=== PATIENT | female | born 1965 | race Caucasian/White ===

== ENCOUNTER 2017-08-23 09:26 | Inpatient (IN) ==
--- NOTE | 2017-08-22 17:11 | Discharge Summary ---
<Lilibeth Uriarte - Last Filed: 08/22/17 17:08> Date of Encounter: 08/22/17 - Discharge Diagnosis (1) HTN (hypertension) Priority: Secondary Status: Chronic Qualifiers: Hypertension type: unspecified Qualified Code(s): I10 - Essential (primary ) hypertension (2) Fibromyalgia Priority: Secondary Status: Chronic (3) Osteoarthritis Priority: Secondary Status: Chronic Qualifiers: Osteoarthritis location: unspecified site Osteoarthritis type: unspecified Qualified Code(s): M19.90 - Unspecified osteoarthritis, unspecified site (4) Morbid obesity with BMI of 50.0-59.9, adult Priority: Secondary Status: Chronic (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 [Rx] OxyCODONE Immed Rel [Roxicodone 5 MG] 5 mg PO Q6HR PRN 7 Days #28 tablet [Rx] Cyclobenzaprine [Flexeril] 10 mg PO TID PRN 08/23/17 [History] Montelukast [Singulair] 10 mg PO HS 08/23/17 [History] Allergies/Adverse Reactions: 3 Allergy/AdvReac Type Severity Reaction Status Date / Time naproxen [From Naprosyn] AdvReac Nausea Verified 08/23/17 10:04 Primary care physician: Susana Amanda CNP - Patient Status Disposition: Home, Self-Care Condition: Good - Discharge Instructions Follow Up With: Lilibeth Uriarte PAC [Physician Side Stitcher] - 08/31/17 2:15 pm (& also, , September 07, 2017 at 2:15 PM) Robi Munroe MD [Partnered Physician] - 09/20/17 4:30 pm Susana Amanda CNP [Primary Care Provider] - - Hospital Course Hospital course: Ms. 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 Qualifiers: Encounter type: subsequent encounter Qualified Code(s): T84.012D - Broken internal right knee prosthesis, subsequent encounter (2) HTN (hypertension) Priority: Secondary Status: Chronic Qualifiers: Hypertension type: unspecified Qualified Code(s): I10 - Essential (primary ) hypertension (3) Fibromyalgia Priority: Secondary Status: Chronic (4) Morbid obesity with BMI of 50.0-59.9, adult Priority: Secondary Status: Chronic (5) Status post revision of total replacement of right knee Priority: Primary Status: Acute Primary care physician: Susana Amanda CNP - Patient Status Functional capacity at discharge: uses cane/walker Overall status at discharge: patient is progressing back to baseline - Hospital Course Hospital course: Ms. Evangelista is a 52 year old female Status post revision right total knee. Patient had a fall in the hospital slight shift in the periprosthetic fracture that was noted Intra-Op.The patient had an uneventful postoperative course. They received antibiotics and physical therapy and were discharged in stable condition. There will follow-up in the office in 2 weeks. - Time Spent with Patient Total time spent providing and/or coordinating discharge services:
--- NOTE | 2017-08-22 17:15 | Physician Discharge Referral ---
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 For more information, call the [place] Tobacco Quit Line at 2-638-JZKW-NOW. - Dressing/Wound Care Site: right knee Type of Dressing/Treatments w/Frequency: Opsite placed. Keep dressing intact until first follow up appointment. If > 50% saturated, notify office, remove dressing and place appropriate dressing back in place. Leave Zipline intact. Opsite dressing is water resistant, not water- proof. OK to shower, but do not get dressing wet. - Diet/Nutrition Diet/Nutrition Orders: Regular - Activity Activity Orders: Up ad jamil, Ambulate, Chair, Walker Activity: List: Total Knee replacement Precautions x 6 weeks Apply cold therapy wrap 3-6x/day for 20 minutes at a time. Encourage ambulation throughout the day and incentive spirometer 10x/hour. Elevate affected extremity above heart as tolerated. Brace: Wear knee immobilizer at night x 2 weeks. - Services Needed Following services are medically necessary services: Nursing, Home Health Aide, Physical Therapy, Occupational Therapy, Med Social Work - Transfer Medications Prescriptions: OxyCODONE Immed Rel [Roxicodone 5 MG] 5 mg PO Q6HR PRN 7 Days #28 tablet PRN Reason: Pain Aspirin Enteric Coated [Aspirin EC] 325 mg PO DAILY 21 Days #21 tablet.dr Harrison Medications: DiphenhydraMINE [Benadryl] 50 mg PO HS PRN 06/29/15 [History] Gabapentin [Neurontin] 300 mg PO HS 06/29/15 [History] Gabapentin [Neurontin] 600 mg PO QAM 06/29/15 [History] Meloxicam [Mobic] 7.5 mg PO DAILY 06/29/15 [History] Triamterene/HCTZ 37.5/25mg [Dyazide] 1 each PO DAILY 06/29/15 [History] Venlafaxine XR (24 HR) [Effexor Xr] 150 mg PO DAILY 06/29/15 [History] Oxycodone HCl/Acetaminophen [Percocet 7.5-325 mg Tablet] 1 each PO Q6H PRN #40 tablet 07/01/15 [Rx] Levofloxacin [Levaquin] 500 mg PO DAILY #10 tablet 07/03/15 [Rx] Aspirin Enteric Coated [Aspirin EC] 325 mg PO DAILY 21 Days #21 tablet. [Rx] OxyCODONE Immed Rel [Roxicodone 5 MG] 5 mg PO Q6HR PRN 7 Days #28 tablet [Rx] Allergies/Adverse Reactions: 3 Allergy/AdvReac Type Severity Reaction Status Date / Time acetaminophen [From Vicodin] Allergy Hives Verified 08/16/17 08:52 hydrocodone [From Vicodin] Allergy Hives Verified 08/16/17 08:52 naproxen [From Naprosyn] Allergy Nausea Verified 08/16/17 08:52 Certification: Further, I certify that my clinical findings support that this patient is homebound (i.e. absences from home require considerable and taxing effort and are for medical reasons or gnosticist services or infrequently or short duration when for other reasons) because: Homebound Reason: Post-surgery restriction and or conditions limit ability to leave home Attestation: My signature below is to certify that this patient is under my care and that I, or nurse practitioner, or a physician digital assistant working with me, has a face-to- face encounter with this patient.
[2017-08-23] MEDS ORDERED: Lidocaine -MPF 1% 2 ML VIAL ID ONE (09:44)
[2017-08-23] MEDS ORDERED: CeFAZolin Syr 3,000MG/30 ML 3,000 MG/30 ML SYRINGE IVPB ONE (09:44)
[2017-08-23] MEDS ORDERED: Ringers Solution, Lactated 1,000 ML IVC SCH ×2 (09:45→14:33)
[2017-08-23] MEDS ORDERED: Famotidine 20 MG/2 ML VIAL IVP ONE (09:49)
[2017-08-23] MEDS ORDERED: Gabapentin 300 MG CAPSULE PO ONE (09:49)
[2017-08-23] MEDS ORDERED: *HR* Midazolam HCl 2 MG/2 ML VIAL ONE ×2 (09:54→10:47)
[2017-08-23] MEDS ORDERED: *HR* Propofol 200 MG/20 ML VIAL IVP ONE (09:54)
[2017-08-23] MEDS ORDERED: *HR* FentaNYL (PF) 100 MCG/2 ML VIAL ONE (09:54)
--- NOTE | 2017-08-23 09:54 | Anesthesia Evaluation PreOp ---
Date of Encounter: 08/23/17 Time of Encounter: 09:50 - Past History Planned Operation: Rt TKA Revision Cardiac History: Denies any Significant Hx Pulmonary History: Denies Any Significant HX SURVEY PROJECT MANAGER History: Other (Fibromyalgia) Other Medical History: Other (Morbid Obesity) Anesthesia History: No Prior Anesthetic Complications : No Alcohol Use: none Drug use: none Medications and Allergies DiphenhydraMINE [Benadryl] 50 mg PO HS PRN 06/29/15 [History] Gabapentin [Neurontin] 300 mg PO HS 06/29/15 [History] Gabapentin [Neurontin] 600 mg PO QAM 06/29/15 [History] Meloxicam [Mobic] 7.5 mg PO DAILY 06/29/15 [History] Triamterene/HCTZ 37.5/25mg [Dyazide] 1 each PO DAILY 06/29/15 [History] Venlafaxine XR (24 HR) [Effexor Xr] 150 mg PO DAILY 06/29/15 [History] Oxycodone HCl/Acetaminophen [Percocet 7.5-325 mg Tablet] 1 each PO Q6H PRN #40 tablet 07/01/15 [Rx] Levofloxacin [Levaquin] 500 mg PO DAILY #10 tablet 07/03/15 [Rx] Aspirin Enteric Coated [Aspirin EC] 325 mg PO DAILY 21 Days #21 tablet. [Rx] OxyCODONE Immed Rel [Roxicodone 5 MG] 5 mg PO Q6HR PRN 7 Days #28 tablet [Rx] 3 Allergy/AdvReac Type Severity Reaction Status Date / Time acetaminophen [From Vicodin] Allergy Hives Verified 08/16/17 08:52 hydrocodone [From Vicodin] Allergy Hives Verified 08/16/17 08:52 naproxen [From Naprosyn] Allergy Nausea Verified 08/16/17 08:52 - Meds/Allergy Pre-op Review Medications Reviewed: Yes Allergies Reviewed: Yes Beta Blockers on Current Med List: No Anesthesia Results - Labs Laboratory Tests 07/03/15 07/03/15 17:50 17:50 Hgb 11.0 L Hct 32.9 L Plt Count 279 Sodium 142 Potassium 3.0 L BUN 6 L Creatinine 0.77 HGB 12.9 Plt 227 - Imaging EKG: report reviewed (SR) Additional studies: Cleared for surgery by her outside maintenance worker Anesthesia Exam O2 Sat Height 1.68 m Height 1.68 m Weight 146.057 kg Weight 146.057 kg O2 Sat by Pulse Oximetry 95 Vital Signs Temp Pulse Resp BP Pulse Ox 98.0 F 83 18 130/74 95 08/23/17 09:50 08/23/17 09:50 08/23/17 09:50 08/23/17 09:50 08/23/17 09:50 Height: 5'6 Weight: 322 lbs NPO (# of Hours): MN Pain Scale: 0 - HEENT Pupil (Motor): Pupils equal, EOMI Mallampati: II Teeth: Normal Oral Opening: Greater than 3 - SURVEY PROJECT MANAGER LOC: Oriented SURVEY PROJECT MANAGER Motor: Normal RUE, Normal LUE, Normal RLE, Normal LLE, Normal Face SURVEY PROJECT MANAGER Sensory: Normal: RUE, LUE, RLE, LLE, Face - Cardiac Rhythm: Regular Murmur: None JVD: No Carotid Bruit: No - Pulmonary Breath Sounds: bilateral Clear Respiratory Effort: Symmetrical Anesthesia Assess/Plan ASA Score: 3 (MO) Modified Emmie Scale for Level of Consciousness: Cooperative, oriented, and tranquil Anesthetic Plan: General, Regional Monitoring Plan: Standard Monitors Recovery Plan: PACU (Discussed GA and RA, agrees to proceed)
[2017-08-23] MEDS ORDERED: Lidocaine -MPF 2% 2 ML VIAL ONE (09:56)
--- NOTE | 2017-08-23 10:04 | History & Physical Report ---
Date of Encounter: 08/23/17 Time of Encounter: 10:03 24 Hour HP Update - Instructions Instructions: If the History and Physical is less than 30 days old and was completed prior to A.M. admission and or procedure and has NOT been updated on calendar day of procedure please complete this update prior to performing procedure. - Update Patient reports changes in Medical Condition: No Changes in examination, assessment, or condition: No Changes in Medication: No Preop tests/diagnostics Reviewed: Yes Surgery Remains Indicated: Yes Consent for Planned Operative Procedure(s) Verified: Yes - Pre-Operative Checklist Preoperative Checklist Indicated: No Prophylactic Antibiotic Ordered: Yes Is VTE Prophylaxis Indicated?: Yes
[2017-08-23] MEDS ORDERED: ROPIVACAINE HCL/PF 0.5% 30 ML VIAL ONE (10:26)
[2017-08-23] MEDS ORDERED: Ethanol\\Acetic Acid\\Na Ace\\Ben 1,000 ML IRRIG.SOLN IR ONE (10:32)
[2017-08-23] MEDS ORDERED: *HR* Promethazine 25 MG/ML VIAL IVP PRN (11:02)
[2017-08-23] MEDS ORDERED: *HR* Labetalol 20 MG/4 ML SYRINGE IVP PRN (11:02)
--- NOTE | 2017-08-23 11:05 | Anesthesia Procedures ---
Date of Encounter: 08/23/17 Time of Encounter: 10:50 Procedures: Anesthesia - Nerve Block Procedure Date: 08/23/17 Time: 10:50 Allergies/Adv Reactions: see emr Surgical Procedure: right TKA rev Checklist: Correct Patient Identifier, Correct procedure, History checked Correct side: Right Blood Thinner: No Monitor Applied: EKG, BP, Pulse Oximetry Supplemental Oxygen via Nasal Cannula (L/min): 2 Sedation: Versed (mg): 4 Sedation: Fentanyl (mcg): 100 Indication: Post Op Analgesia Pre-op Neuro Deficits: No Block Type: Femoral, Other (ipack) Catheter placed: No Sterile Technique: Yes Ultrasound used: Yes Anatomy identified: Yes Visual spread of Local: Yes Neuro Stimulation: Yes (femoral only) Nerve Stimulator Range: 0.2 - 0.4 mA Blood on Needle Aspiration: No Smooth Injection of Local: Yes Pain with Injection of Local: No Prep: Chlorhexadine Needle: 21 x 100 mm Stimuplex Local: Ropivacaine Volume (cc): 60 Number of Attempts: 1 Complications: None/effective block Vitals: Vital Signs/O2 Sat/Glucose, Most Recent Temp Pulse Resp BP Pulse Ox 98.0 F 77 18 154/85 100 08/23/17 09:50 08/23/17 10:52 08/23/17 09:50 08/23/17 10:52 08/23/17 10:52
[2017-08-23] MEDS ORDERED: *HR* Succinylcholine 200 MG/10 ML VIAL IVP ONE (11:06)
[2017-08-23] MEDS ORDERED: Ketamine *HR* 500 MG/10 ML MDV ONE (11:07)
[2017-08-23] MEDS ORDERED: Dexamethasone 4 MG/ML VIAL ONE (11:18)
[2017-08-23] MEDS ORDERED: Ondansetron 4 MG/2 ML VIAL ONE (11:18)
--- NOTE | 2017-08-23 12:43 | Orthopedic Operative Note ---
Date of procedure: 08/23/17 Pre-op diagnosis: Right total knee implant failure Post-op diagnosis: same Procedure: Procedure: Right revision total knee Estimated blood loss: 300 Hardware: Metal and polyethylene replacement. Biomet SSK femur: 60, 12 x 80 Tibia: 67, 10 x 80 Constrained Kassie: 16, 37 patella Exam Under anesthesia: Full flexion and extension no instability. Procedural Notes:The patient with failure of the screw holes the poly-in place. Screw broke. This was a revision of a previous screw fixation failure. Because the screw broke more time was taken to mobilize the bone around the tibial stem and remove the stem because the screw broke in the stem and no threads were available for stem extraction Operative procedure: The patient was brought to the operating room and placed on the operating room table. After general anesthesia was administered the operative knee was examined. Findings were noted in the exam under anesthesia. The operative extremity was prepped and draped in sterile surgical fashion. The patient received IV antibiotics prior to skin incision. A standard midline incision was made centered over the patella through the old incision. The incision was made through the skin and subcutaneous tissue. A medial parapatellar tendon approach was performed. Care was taken to preserve tissue along the medial aspect of the patella. And to protect the patella tendon. The deep MCL was released off the medial tibia. The infra patella fat pad was excised. Fluid was encountered this was normal joint fluid, Cultures were obtained and gram . Patient's patella was transected below the level of the component. It was sized to a 37 guide was seated lug holes drilled. The knee was brought into flexion the screw that holds the poly was broken. the poly-was removed. The interface between the patient's femoral component and distal femur were disrupted with a osteotome and oscillating saw. Femoral component was removed removed without significant bone loss. Attention was then turned to the tibial component. The same technique was used to remove the tibial component by disrupting the interface between the patient's tibial component and the patients proximal tibia. The tibial component was removed without significant bone loss. The tibia was sized to a 67 it was reamed up to a 10 x80 Trial had good fit and fixation. The femur was sized to a 60, was reamed up to a 12 x 80 The finishing guide was seated and the box cut was made. The trial had good fit and fixation. Patient had a nondisplaced fracture of the lateral epicondyle. This was well fixed when the real implant was seated. Both trial components were seated and the 16 constrained Kassie was seated and secured. The knee had full flexion and full extension with no instability. Patella had excellent patella tracking. The trial components were removed. The knee sat for 2 minutes with a Betadine saline solution. It was irrigated out with 2 L of pulse irrigation. The components were assembled on the back table, the tibia cemented first followed by the femur. The 16 constrained liner was seated and secure. The knee was brought to full extension while the cement hardened. The patella was cemented and held in place with patellar holding clamp. After the cement hardened the knee was irrigated out again. The knee was closed by the PA. The extensor mechanism was closed with a running #2 Fiberwire suture and a running #2 PDS suture. The deep tissue was irrigated and closed deep with #1 PDS suture superficially with 0 PDS suture. The skin was closed with skin delfin. The patient was placed in a sterile dressing and postoperative brace. They were extubated and transferred to recovery room in stable condition. Anesthesia: AKILAH Surgeon: Robi Munroe Oil Agent: Lilibeth Uriarte Condition: stable Disposition: PACU
[2017-08-23] MEDS ORDERED: *HR* Magnesium Sulfate 1 GM/2 ML VIAL ONE (13:22)
[2017-08-23] MEDS ORDERED: *HR* HYDROmorphone (PF) 1 MG/ML SYRINGE ONE ×2 (13:33→13:58)
[2017-08-23] MEDS: *HR* HYDROmorphone (PF) 1 MG/ML SYRINGE IVP PRN ×5 (13:35→16:57)
[2017-08-23 14:03] LABS: Hematocrit 39.4 % (35.3-44.9); Hemoglobin 12.6 g/dL (11.5-15.4)
[2017-08-23] MEDS ORDERED: MOM Conc 10 ML UD.LIQ PO PRN (14:33)
[2017-08-23] MEDS ORDERED: Naloxone 0.4 MG/ML INJ IVP PRN (14:33)
[2017-08-23] MEDS ORDERED: *HR* OxyCODONE Immed Rel 5 MG TABLET PO PRN (14:33)
[2017-08-23] MEDS ORDERED: Sennosides 8.6 MG TABLET PO PRN (14:33)
[2017-08-23] MEDS ORDERED: Temazepam 15 MG CAPSULE PO PRN (14:33)
[2017-08-23] MEDS ORDERED: Ondansetron 4 MG/2 ML VIAL IVP PRN (14:33)
[2017-08-23] MEDS: *HR* OxyCODONE Immed Rel 5 MG TABLET PO PRN ×2 (15:41→23:08)
[2017-08-23] MEDS ORDERED: CeFAZolin Syr 3,000MG/30 ML 3,000 MG/30 ML SYRINGE IVPB SCH (16:00)
[2017-08-23] MEDS ORDERED: *HR* Enoxaparin 30 MG/0.3 ML SYRINGE SQ SCH (18:00)
[2017-08-23] MEDS: CeFAZolin Syr 3,000MG/30 ML 3,000 MG/30 ML SYRINGE IVPB SCH (18:43)
[2017-08-23] MEDS: *HR* Enoxaparin 30 MG/0.3 ML SYRINGE SQ SCH (18:44)
[2017-08-24] MEDS: *HR* HYDROmorphone (PF) 1 MG/ML SYRINGE IVP PRN ×4 (01:04→18:36)
[2017-08-24] MEDS: CeFAZolin Syr 3,000MG/30 ML 3,000 MG/30 ML SYRINGE IVPB SCH (03:35)
[2017-08-24 05:16] LABS: Hematocrit 38.6 % (35.3-44.9); Hemoglobin 12.4 g/dL (11.5-15.4)
[2017-08-24] MEDS: *HR* OxyCODONE Immed Rel 5 MG TABLET PO PRN ×3 (05:31→15:10)
[2017-08-24] MEDS: *HR* Enoxaparin 30 MG/0.3 ML SYRINGE SQ SCH ×2 (05:33→18:35)
--- NOTE | 2017-08-24 07:22 | Anesthesia Evaluation Post Op ---
Date of Encounter: 08/23/17 Time of Encounter: 15:00 - Lungs Lungs: Clear Ascult./Percussion - Airway Airway: Non-obstructed - Cardiovascular Regular Rate - Mental Status Mental Status: Alert & Oriented, Answers Appropriately - Pain Pain Scale: 2 - Nausea Vomiting Nausea Vomiting: Not Present - Hydration Hydration: Ice chips - Discharge PostOp Status: Transfer Patient to floor
[2017-08-24 08:21] LABS: BUN/Creatinine Ratio 14 (6-26); Blood Urea Nitrogen 11 mg/dL (7-20); Calcium 9.1 mg/dL (8.6-10.8); Carbon Dioxide 23 mEq/L (19-29); Chloride 105 mEq/L (98-109); Glucose 148 mg/dL (70-99); Osmolality,Calculated 292 (280-300); Potassium 4.8 mEq/L (3.5-4.5); Sodium 140 mEq/L (136-145); eGFR For African Americans > 60 (> 60); eGFR For Non-African Americans > 60 (> 60)
[2017-08-24] MEDS: Gabapentin 300 MG CAPSULE PO SCH (08:48)
[2017-08-24] MEDS ORDERED: Venlafaxine XR (24 HR) 150 MG CAP.ER.24H PO SCH ×2 (09:00→21:00)
--- NOTE | 2017-08-24 09:09 | Orthopedics Progress Note ---
Date of Encounter: 08/24/17 Time of Encounter: 09:08 - Assessment and Plan (1) Failed total right knee replacement Current Visit: No Status: Chronic Qualifiers: Encounter type: subsequent encounter Qualified Code(s): T84.012D - Broken internal right knee prosthesis, subsequent encounter (2) HTN (hypertension) Current Visit: No Status: Chronic Qualifiers: Hypertension type: unspecified Qualified Code(s): I10 - Essential (primary ) hypertension (3) Fibromyalgia Current Visit: No Status: Chronic (4) Morbid obesity with BMI of 50.0-59.9, adult Current Visit: No Status: Chronic (5) Status post revision of total replacement of right knee Current Visit: No Status: Acute Subjective Interval history: Patient was seen this morning doing well without complaints. Afebrile vital signs stable. Operative extremity: Neurovascularly intact Dressing clean dry and intact Calves nontender Assessment and plan: Continue with postoperative care Hematocrit 38 patient's x-rays were reviewed and showed the minimally displaced femur fracture. This was discussed with the patient. No restrictions necessary at this time Objective Vital signs: Vital Signs Temp Pulse Resp BP Pulse Ox 08/24/17 08:39 98.3 F 74 16 127/77 96 08/24/17 06:52 98.5 F 73 16 149/78 97 08/24/17 04:21 98.4 F 66 18 158/77 96 08/24/17 00:55 97.8 F 80 17 158/85 97 08/23/17 19:20 97.4 F L 72 16 127/90 93 08/23/17 16:50 97.6 F 90 15 116/68 97 08/23/17 15:50 97.6 F 92 15 123/71 92 08/23/17 15:18 97.5 F L 86 16 129/74 99 08/23/17 14:50 95 08/23/17 14:40 98.0 F 90 17 153/86 97 08/23/17 14:24 97.3 F L 81 16 117/81 99 08/23/17 14:14 97.3 F L 82 16 117/93 99 08/23/17 14:04 89 16 112/87 99 08/23/17 13:54 97.0 F L 83 16 130/86 99 08/23/17 13:44 87 16 133/87 100 08/23/17 13:34 87 16 124/85 100 08/23/17 13:24 97.1 F L 87 10 133/85 94 08/23/17 10:52 77 154/85 100 08/23/17 10:30 75 147/88 98 08/23/17 09:50 98.0 F 83 18 130/74 95 Intake and Output 08/23/17 08/24/17 08/24/17 23:59 07:59 15:59 Intake Total 390 / 390 750 / 750 Output Total 750 / 750 Balance 390 / 390 0 / 0 Intake: IV Fluids 30 / 30 Ancef Syringe 3,000 MG/30 ML 3, 30 / 30 000 mg In 30 ml @ 200 mls/hr IVPB Q8H [facility] Rx#:[id number] Oral 360 / 360 750 / 750 Output: Urine 750 / 750 Other: Weight 156 kg Patient Weight 08/24/17 23:59 Weight 156 kg - Labs CBC & BMP: 08/24/17 04:55 08/24/17 06:22 Labs: Abnormal lab results Potassium 4.8 mEq/L (3.5-4.5) H 08/24/17 06:22 Glucose 148 mg/dL (70-99) H 08/24/17 06:22 - VTE Documentation of Mechanical Device: Venous foot pump, device Consult Discharge Plan - Plan Referrals: Susana Amanda CNP [Primary Care Provider] -
[2017-08-24] MEDS ORDERED: Gabapentin 300 MG CAPSULE PO SCH (21:00)
--- NOTE | 2017-08-24 21:25 | Event Note ---
Date of Encounter: 08/24/17 Time of Encounter: 12:40 PCR- POD# 1 Right TKR revision 08/23/17 Ludwig PCR - Patient seen at bedside. Pain control: Adequate Participating in PT. All questions and concerns addressed. Educated on use of incentive spirometer, ambulation, and hydration. Patient educated on post-operative restrictions and care. Addressed: Patient experienced fall this morning while attempting to transfer to toilet. Xrays obtained after fall demonstrating no acute changes. Both xrays demonstrate: Status post right total knee replacement with an oblique closed minimally displaced fracture of the lateral aspect of the distal right femoral metaphysis. Discussed xrays and fall with Dr. Munroe - requested patient be put in knee immobilizer with no CPM for timebeing. D/C plan: ECF - patient states she will need xray orders for first outpatient visit with our office so she can get them at [facility] - will coordinate this with nurse navigator.
--- NOTE | 2017-08-24 21:33 | Physician Discharge Referral ---
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 (6) Status post revision of total replacement of right knee Priority: Secondary Status: Acute Expected Duration of Placement: less than 30 days Prognosis: Good Aware of Diagnosis: Patient Aware of Prognosis: Patient - Transfer Medications Home Medications: Gabapentin [Neurontin] 600 mg PO QAM 06/29/15 [History] Gabapentin [Neurontin] 900 mg PO HS 06/29/15 [History] Meloxicam [Mobic] 7.5 mg PO DAILY 06/29/15 [History] Triamterene/HCTZ 37.5/25mg [Dyazide] 1 each PO DAILY 06/29/15 [History] Venlafaxine XR (24 HR) [Effexor Xr] 150 mg PO DAILY 06/29/15 [History] Aspirin Enteric Coated [Aspirin EC] 325 mg PO DAILY 21 Days #21 tablet. [Rx] OxyCODONE Immed Rel [Roxicodone 5 MG] 5 mg PO Q6HR PRN 7 Days #28 tablet [Rx] Cyclobenzaprine [Flexeril] 10 mg PO TID PRN 08/23/17 [History] Montelukast [Singulair] 10 mg PO HS 08/23/17 [History] Allergies/Adverse Reactions: 3 Allergy/AdvReac Type Severity Reaction Status Date / Time naproxen [From Naprosyn] AdvReac Nausea Verified 08/23/17 10:04 - Respiratory Orders Smoking Cessation: Smoking cessation has been advised. For more information, call the [place] Tobacco Quit Line at 9-773-EBZD-NOW. - Ancillary Orders May use pressure relief devices daily prn, May go on [place] w/family/respon libertarian w /meds at nurse discretion PRN, May consult with Dentist, Ash Kier Boiler, Group Insurance Specialist PRN - Mobility Orders Chair, Ambulate - Rehabiliation Orders Rehab Potential: Good Rehab Orders: Evaluation for Physical Therapy, Evaluation for Occupational Therapy Other: Total Knee replacement Precautions x 6 weeks Apply cold therapy wrap 3-6x/day for 20 minutes at a time. Encourage ambulation throughout the day and incentive spirometer 10x/hour. Elevate affected extremity above heart as tolerated. Brace: Wear knee immobilizer at night x 2 weeks. - Treatments Skin tear care topically daily PRN per policy List/Other: Opsite placed. Keep dressing intact until first follow up appointment. If > 50% saturated, notify office, remove dressing and place appropriate dressing back in place. Leave Zipline intact. Opsite dressing is water resistant, not water- proof. OK to shower, but do not get dressing wet. - Diet Orders Regular CERTIFICATION: I certify that the transfer of the above named patient to an Extended Care Facility is necessary for the continuing treatment of the diagnosis listed. The above information is true and accurate reflection of patient's current condition. Confidential - Redisclosure prohibited without a patient's written consent.
[2017-08-25 00:41] VITALS: BP 114/77
[2017-08-25] MEDS: *HR* OxyCODONE Immed Rel 5 MG TABLET PO PRN ×3 (00:49→09:32)
[2017-08-25] MEDS: *HR* HYDROmorphone (PF) 1 MG/ML SYRINGE IVP PRN (03:30)
[2017-08-25] MEDS: *HR* Enoxaparin 30 MG/0.3 ML SYRINGE SQ SCH (05:20)
[2017-08-25 05:43] LABS: Hematocrit 32.3 % (35.3-44.9)
[2017-08-25 05:50] LABS: Hemoglobin 10.2 g/dL (11.5-15.4)
[2017-08-25 06:07] LABS: BUN/Creatinine Ratio 21 (6-26); Blood Urea Nitrogen 17 mg/dL (7-20); Calcium 8.5 mg/dL (8.6-10.8); Carbon Dioxide 28 mEq/L (19-29); Chloride 102 mEq/L (98-109); Glucose 121 mg/dL (70-99); Osmolality,Calculated 291 (280-300); Sodium 139 mEq/L (136-145); eGFR For African Americans > 60 (> 60); eGFR For Non-African Americans > 60 (> 60)
--- NOTE | 2017-08-25 06:41 | Orthopedics Progress Note ---
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 Qualifiers: Encounter type: subsequent encounter Qualified Code(s): T84.012D - Broken internal right knee prosthesis, subsequent encounter (2) HTN (hypertension) Current Visit: No Status: Chronic Qualifiers: Hypertension type: unspecified Qualified Code(s): I10 - Essential (primary ) hypertension (3) Fibromyalgia Current Visit: No Status: Chronic (4) Morbid obesity with BMI of 50.0-59.9, adult Current Visit: No Status: Chronic (5) Status post revision of total replacement of right knee Current Visit: No Status: Acute Subjective Interval history: Patient was seen this morning doing well without complaints. Afebrile vital signs stable. Operative extremity: Neurovascularly intact Dressing clean dry and intact Calves nontender Assessment and plan: Continue with postoperative care Postoperative x-rays following fall she was a slight shift in position of fracture fragments. We will restrict motion weightbearing as tolerated discharge today Objective Vital signs: Vital Signs Temp Pulse Resp BP Pulse Ox 08/25/17 00:39 98.2 F 105 18 114/77 96 08/25/17 00:33 98 F 65 15 125/69 95 08/24/17 18:52 98.2 F 97 16 118/82 100 08/24/17 18:00 98.4 F 107 15 110/72 97 08/24/17 14:57 98 F 88 16 135/68 98 08/24/17 08:39 98.3 F 74 16 127/77 96 08/24/17 06:52 98.5 F 73 16 149/78 97 Intake and Output 08/24/17 08/24/17 08/25/17 15:59 23:59 07:59 Intake Total 0 / 0 480 / 480 100 / 100 Output Total 0 / 0 900 / 900 400 / 400 Balance 0 / 0 -420 / -420 -300 / -300 Intake: Oral 0 / 0 480 / 480 100 / 100 Output: Urine 0 / 0 900 / 900 400 / 400 Other: Meal Dinner Percent of Meal Consumed 90% # Voids 1 - Labs CBC & BMP: 08/25/17 05:10 08/25/17 05:10 Labs: Abnormal lab results Hgb 10.2 g/dL (11.5-15.4) L D 08/25/17 05:10 Hct 32.3 % (35.3-44.9) L 08/25/17 05:10 Glucose 121 mg/dL (70-99) H 08/25/17 05:10 Calcium 8.5 mg/dL (8.6-10.8) L 08/25/17 05:10 - VTE Documentation of Mechanical Device: Venous foot pump, device Consult Discharge Plan - Plan Referrals: Lilibeth Uriarte, PAC [Physician Binding Cutter] - 08/31/17 2:15 pm (& also, , September 07, 2017 at 2:15 PM) Robi Munroe MD [Partnered Physician] - 09/20/17 4:30 pm Susana Amanda CNP [Primary Care Provider] -
[2017-08-25] MEDS: Gabapentin 300 MG CAPSULE PO SCH (09:33)
== END 2017-08-25 11:13 | disposition home or self-care (01) | DRG 467 ==
LOC: SAMDAY 09:26 → 3NENU 15:01
PROVIDERS: ADMIT Orthopaedic Surgery; ATTEND Orthopaedic Surgery

== ENCOUNTER 2017-10-02 15:16 | Inpatient (IN) ==
--- NOTE | 2017-10-01 14:03 | Discharge Summary ---
<Lilibeth Uriarte E - Last Filed: 10/01/17 13:59> Date of Encounter: 10/01/17 - Discharge Diagnosis (1) Periprosthetic fracture around prosthetic knee Priority: Primary Status: Acute Qualifiers: Encounter type: subsequent encounter Laterality: right Qualified Code(s) : M97.11XD - Periprosthetic fracture around internal prosthetic right knee joint , subsequent encounter; T84.042D - Periprosthetic fracture around internal prosthetic right knee joint, subsequent encounter (2) Fibromyalgia Priority: Secondary Status: Chronic (3) Depression Priority: Secondary Status: Chronic Qualifiers: Depression Type: unspecified Qualified Code(s): F32.9 - Major depressive disorder, single episode, unspecified (4) Obesity Priority: Secondary Status: Chronic Qualifiers: Obesity type: unspecified obesity type Obesity classification: unspecified obesity classification Serious obesity comorbidity presence: unspecified whether serious comorbidity present Qualified Code(s): E66.9 - Obesity, unspecified - Discharge Medications Home Medications: Gabapentin [Neurontin] 600 mg PO QAM 06/29/15 [History] Gabapentin [Neurontin] 900 mg PO HS 06/29/15 [History] Triamterene/HCTZ 37.5/25mg [Dyazide] 1 each PO DAILY 06/29/15 [History] Venlafaxine XR (24 HR) [Effexor Xr] 150 mg PO HS 06/29/15 [History] Cyclobenzaprine [Flexeril] 10 mg PO TID PRN 08/23/17 [History] Montelukast [Singulair] 10 mg PO HS 08/23/17 [History] Lidocaine Patch [Lidoderm 5% patch] 1 each TP DAILY 30 Days #30 adh..patch 08/25 [Rx] Aspirin Enteric Coated [Aspirin EC] 325 mg PO DAILY 21 Days #21 tablet.dr [Rx] OxyCODONE Immed Rel [Roxicodone 5 MG] 5 mg PO Q6HR PRN 7 Days #28 tablet [Rx] Allergies/Adverse Reactions: 3 Allergy/AdvReac Type Severity Reaction Status Date / Time naproxen [From Naprosyn] AdvReac Nausea Verified 10/02/17 15:15 Primary care physician: PCP NONE - Patient Status Disposition: Home, Self-Care Condition: Good - Discharge Instructions Follow Up With: NONE,PCP [Primary Care Provider] - - Hospital Course Hospital course: Ms. Evangelista is a 52 year old female - Time Spent with Patient Total time spent providing and/or coordinating discharge services: <Robi Munroe - Last Filed: 10/03/17 06:54> Date of Encounter: 10/03/17 Time of Encounter: 06:54 - Discharge Diagnosis (1) HTN (hypertension) Priority: Secondary Status: Chronic Qualifiers: Hypertension type: unspecified Qualified Code(s): I10 - Essential (primary ) hypertension (2) Fibromyalgia Priority: Secondary Status: Chronic (3) Morbid obesity with BMI of 50.0-59.9, adult Priority: Secondary Status: Chronic (4) Periprosthetic fracture around prosthetic knee Priority: Secondary Status: Acute Qualifiers: Encounter type: subsequent encounter Laterality: right Qualified Code(s) : M97.11XD - Periprosthetic fracture around internal prosthetic right knee joint , subsequent encounter; T84.042D - Periprosthetic fracture around internal prosthetic right knee joint, subsequent encounter (5) Fibromyalgia Priority: Secondary Status: Chronic (6) Depression Priority: Secondary Status: Chronic Qualifiers: Depression Type: unspecified Qualified Code(s): F32.9 - Major depressive disorder, single episode, unspecified Primary care physician: PCP NONE - Patient Status Functional capacity at discharge: uses cane/walker Overall status at discharge: patient is progressing back to baseline - Hospital Course Hospital course: Ms. Evangelista is a 52 year old female Status post revision femoral component The patient had an uneventful postoperative course. They received antibiotics and physical therapy and were discharged in stable condition. There will follow -up in the office in 2 weeks. - Time Spent with Patient Total time spent providing and/or coordinating discharge services:
--- NOTE | 2017-10-01 14:04 | Physician Discharge Referral ---
Home Health/Hosp Referral Info Transfer to: Home Health Attending Provider: Dr Robi Munroe - Diagnosis (1) Periprosthetic fracture around prosthetic knee Priority: Primary Status: Acute (2) Fibromyalgia Priority: Secondary Status: Chronic (3) Depression Priority: Secondary Status: Chronic (4) Obesity Priority: Secondary Status: Chronic (5) Status post revision of total replacement of right knee Priority: Primary Status: Acute - Respiratory Orders Smoking Cessation: Smoking cessation has been advised. For more information, call the [place] Tobacco Quit Line at 4-672-GVZB-NOW. - Dressing/Wound Care Site: right knee Type of Dressing/Treatments w/Frequency: Opsite placed. Keep dressing intact until first follow up appointment. If > 50% saturated, notify office, remove dressing and place appropriate dressing back in place. Leave Zipline intact. Opsite dressing is water resistant, not water- proof. OK to shower, but do not get dressing wet. - Diet/Nutrition Diet/Nutrition Orders: Regular - Activity Activity Orders: Up ad jamil, Ambulate, Chair, Walker Activity: List: Total Knee replacement Precautions x 6 weeks Apply cold therapy wrap 3-6x/day for 20 minutes at a time. Encourage ambulation throughout the day and incentive spirometer 10x/hour. Elevate affected extremity above heart as tolerated. Brace: Wear knee immobilizer at night x 2 weeks. - Services Needed Following services are medically necessary services: Nursing, Home Health Aide, Physical Therapy, Occupational Therapy - Transfer Medications Prescriptions: OxyCODONE Immed Rel [Roxicodone 5 MG] 5 mg PO Q6HR PRN 7 Days #28 tablet PRN Reason: Severe Pain Aspirin Enteric Coated [Aspirin EC] 325 mg PO DAILY 21 Days #21 tablet.dr Harrison Medications: Gabapentin [Neurontin] 600 mg PO QAM 06/29/15 [History] Gabapentin [Neurontin] 900 mg PO HS 06/29/15 [History] Meloxicam [Mobic] 7.5 mg PO DAILY 06/29/15 [History] Triamterene/HCTZ 37.5/25mg [Dyazide] 1 each PO DAILY 06/29/15 [History] Venlafaxine XR (24 HR) [Effexor Xr] 150 mg PO DAILY 06/29/15 [History] Aspirin Enteric Coated [Aspirin EC] 325 mg PO DAILY 21 Days #21 tablet. [Rx] OxyCODONE Immed Rel [Roxicodone 5 MG] 5 mg PO Q6HR PRN 7 Days #28 tablet [Rx] Cyclobenzaprine [Flexeril] 10 mg PO TID PRN 08/23/17 [History] Montelukast [Singulair] 10 mg PO HS 08/23/17 [History] Lidocaine Patch [Lidoderm 5% patch] 1 each TP DAILY 30 Days #30 adh..patch 08/25 [Rx] Aspirin Enteric Coated [Aspirin EC] 325 mg PO DAILY 21 Days #21 tablet. [Rx] OxyCODONE Immed Rel [Roxicodone 5 MG] 5 mg PO Q6HR PRN 7 Days #28 tablet [Rx] Allergies/Adverse Reactions: 3 Allergy/AdvReac Type Severity Reaction Status Date / Time naproxen [From Naprosyn] AdvReac Nausea Verified 08/23/17 10:04 Certification: Further, I certify that my clinical findings support that this patient is homebound (i.e. absences from home require considerable and taxing effort and are for medical reasons or baptism services or infrequently or short duration when for other reasons) because: Homebound Reason: Post-surgery restriction and or conditions limit ability to leave home Attestation: My signature below is to certify that this patient is under my care and that I, or nurse practitioner, or a physician vector control assistant working with me, has a face-to- face encounter with this patient.
[2017-10-02] MEDS ORDERED: CeFAZolin Syr 3,000MG/30 ML 3,000 MG/30 ML SYRINGE IVPB ONE (15:39)
[2017-10-02] MEDS ORDERED: Ringers Solution, Lactated 1,000 ML IVC SCH ×2 (15:45→21:09)
[2017-10-02] MEDS ORDERED: Lidocaine -MPF 1% 2 ML VIAL ONE (16:20)
[2017-10-02] MEDS ORDERED: *HR* Labetalol 20 MG/4 ML SYRINGE IVP PRN (16:38)
[2017-10-02] MEDS ORDERED: Famotidine 20 MG/2 ML VIAL IVP ONE (16:38)
[2017-10-02] MEDS ORDERED: *HR* HYDROmorphone (PF) 1 MG/ML SYRINGE IVP PRN ×2 (16:38→21:09)
[2017-10-02] MEDS ORDERED: *HR* Promethazine 25 MG/ML VIAL IVP PRN (16:38)
[2017-10-02] MEDS ORDERED: Acetaminophen IV 1,000 MG/100 ML INFUS..BTL IVPB ONE (16:41)
--- NOTE | 2017-10-02 16:45 | Anesthesia Evaluation PreOp ---
Date of Encounter: 10/02/17 Time of Encounter: 16:20 - Past History Planned Operation: Revision - R-TKR Cardiac History: HTN (maintained on Gabapentin,) Pulmonary History: Other (Seasonal Allergies maintained on Singulair) [employer] SUPER[employer]OR History: Other (Fibromyalgia maintained on Gabapentin, Flexeril. Anxiety/ depression maintained on Ativan, Effexor) Other Medical History: Denies Any Significant HX, Other (MO/BMI = 51) Anesthesia History: Past Anesthesia (B-TKR 2011, B- sholder scope, Tubal Ligation, plnatar fasciitis, Endometrial ablation, Revision tibial component R TKR) Alcohol Use: none Drug use: none Medications and Allergies Gabapentin [Neurontin] 600 mg PO QAM 06/29/15 [History] Gabapentin [Neurontin] 900 mg PO HS 06/29/15 [History] Triamterene/HCTZ 37.5/25mg [Dyazide] 1 each PO DAILY 06/29/15 [History] Venlafaxine XR (24 HR) [Effexor Xr] 150 mg PO HS 06/29/15 [History] Cyclobenzaprine [Flexeril] 10 mg PO TID PRN 08/23/17 [History] Montelukast [Singulair] 10 mg PO HS 08/23/17 [History] Lidocaine Patch [Lidoderm 5% patch] 1 each TP DAILY 30 Days #30 adh..patch 08/25 [Rx] Aspirin Enteric Coated [Aspirin EC] 325 mg PO DAILY 21 Days #21 tablet. [Rx] OxyCODONE Immed Rel [Roxicodone 5 MG] 5 mg PO Q6HR PRN 7 Days #28 tablet [Rx] 3 Allergy/AdvReac Type Severity Reaction Status Date / Time naproxen [From Naprosyn] AdvReac Nausea Verified 10/02/17 15:15 - Meds/Allergy Pre-op Review Medications Reviewed: Yes Allergies Reviewed: Yes Beta Blockers on Current Med List: No Anesthesia Results - Labs Laboratory Tests 09/26/17 09/26/17 09/26/17 09:40 09:40 09:40 WBC 6.5 Hgb 12.0 Hct 38.1 Plt Count 205 PT 11.4 INR 1.1 APTT 29.7 Sodium 139 Potassium 3.8 Chloride 103 Carbon Dioxide 30 H BUN 14 Creatinine 0.77 Est GFR (Non-Af Amer) > 60 - Imaging EKG: image reviewed Anesthesia Exam O2 Sat Height 1.68 m Height 1.68 m Weight 144.242 kg Weight 144.242 kg O2 Sat by Pulse Oximetry 97 Vital Signs Temp Pulse Resp BP Pulse Ox 98.6 F 90 18 120/74 97 10/02/17 15:47 10/02/17 15:47 10/02/17 15:47 10/02/17 15:47 10/02/17 15:47 Height: 5'6" Weight: 318# BMI = 51 - HEENT Pupil (Motor): Pupils equal, EOMI Mallampati: II Teeth: Normal Oral Opening: Greater than 3 - [employer] LOC: Oriented [employer]PER[employer] Motor: Normal RUE, Normal LUE, Normal RLE, Normal LLE, Normal Face [employer]PER[employer]OR Sensory: Normal: RUE, LUE, RLE, LLE, Face - Cardiac Rhythm: Regular Murmur: None - Pulmonary Breath Sounds: bilateral Clear Respiratory Effort: Symmetrical Anesthesia Assess/Plan ASA Score: 4 (MO, Fibromylagia) Modified Emmie Scale for Level of Consciousness: Cooperative, oriented, and tranquil Anesthetic Plan: General Autologous Blood: Yes Monitoring Plan: Standard Monitors Recovery Plan: PACU Anes Supervising Prov Stmt: Pt seen/evaluated, R&B Discussed, questions answered and consent obtained - MD Nanci
[2017-10-02] MEDS ORDERED: Povidone-Iodine 5% 60 ML, Sodium Chloride IRRigation 500 ML IR ONE (17:20)
--- NOTE | 2017-10-02 17:30 | History & Physical Report ---
Date of Encounter: 10/02/17 Time of Encounter: 17:29 24 Hour HP Update - Instructions Instructions: If the History and Physical is less than 30 days old and was completed prior to A.M. admission and or procedure and has NOT been updated on calendar day of procedure please complete this update prior to performing procedure. - Update Patient reports changes in Medical Condition: No Changes in examination, assessment, or condition: No Changes in Medication: No Preop tests/diagnostics Reviewed: Yes Surgery Remains Indicated: Yes Consent for Planned Operative Procedure(s) Verified: Yes - Pre-Operative Checklist Preoperative Checklist Indicated: No Prophylactic Antibiotic Ordered: Yes Is VTE Prophylaxis Indicated?: Yes
[2017-10-02] MEDS ORDERED: *HR* Midazolam HCl 5 MG/5 ML VIAL IVP ONE (17:42)
[2017-10-02] MEDS ORDERED: Acetaminophen IV 1,000 MG/100 ML INFUS..BTL ONE (17:43)
[2017-10-02] MEDS ORDERED: ROPIVACAINE HCL/PF 0.5% 30 ML VIAL ONE (17:43)
[2017-10-02] MEDS ORDERED: *HR* FentaNYL (PF) 100 MCG/2 ML VIAL ONE ×2 (17:43→18:25)
[2017-10-02] MEDS ORDERED: *HR* Enoxaparin 30 MG/0.3 ML SYRINGE SQ SCH (18:00)
[2017-10-02] MEDS ORDERED: Ethanol\\Acetic Acid\\Na Ace\\Ben 1,000 ML IRRIG.SOLN IR ONE (18:01)
[2017-10-02] MEDS ORDERED: Bupivacaine/Clonidine Syringe 1 EACH SYRINGE ONE (18:14)
--- NOTE | 2017-10-02 19:23 | Anesthesia Procedures ---
Date of Encounter: 10/02/17 Time of Encounter: 18:20 Procedures: Anesthesia - Nerve Block Procedure Date: 10/02/17 Time: 18:20 Allergies/Adv Reactions: naproxen Pre-op Diagnosis: Right knee aseptic loosening of hardware Surgical Procedure: Right knee TKA Checklist: Correct Patient Identifier, Correct procedure, History checked Correct side: Right Blood Thinner: No Monitor Applied: EKG, BP, Pulse Oximetry Supplemental Oxygen via Nasal Cannula (L/min): 2 Sedation: Versed (mg): 5 Sedation: Fentanyl (mcg): 100 Indication: Post Op Analgesia Pre-op Neuro Deficits: No Block Type: Femoral, Other (IPAC) Catheter placed: No Sterile Technique: Yes Ultrasound used: Yes Anatomy identified: Yes Visual spread of Local: Yes Neuro Stimulation: Yes Nerve Stimulator Range: 0.2 - 0.4 mA Blood on Needle Aspiration: No Smooth Injection of Local: Yes Pain with Injection of Local: No Prep: Chlorhexadine Needle: 22 x 50 mm Stimuplex, 21 x 100 mm Stimuplex Local: 0.25% Bupivicaine w/Clonidine 20 mcg/cc (20), Ropivacaine (0.5% 30ml) Volume (cc): 50 Number of Attempts: 1 Complications: None/effective block Vitals: Vital Signs Temperature 98.6 F 10/02/17 15:47 Pulse Rate 90 10/02/17 15:47 Respiratory Rate 18 10/02/17 15:47 Blood Pressure 120/74 10/02/17 15:47 O2 Sat by Pulse Oximetry 97 10/02/17 15:47 Temperature 98.6 F 10/02/17 15:47 Pulse Rate 83 10/02/17 17:41 Respiratory Rate 18 10/02/17 15:47 Blood Pressure 142/71 10/02/17 17:41 O2 Sat by Pulse Oximetry 97 10/02/17 17:41
[2017-10-02] MEDS ORDERED: Ondansetron 4 MG/2 ML VIAL ONE (19:31)
[2017-10-02] MEDS ORDERED: Dexamethasone 4 MG/ML VIAL ONE (19:31)
--- NOTE | 2017-10-02 19:46 | Orthopedic Operative Note ---
Date of procedure: 10/02/17 Pre-op diagnosis: Displaced periprosthetic femur fracture with femoral loosening Post-op diagnosis: same Procedure: Procedure: Right revision femoral component total knee Estimated blood loss: 400 Hardware: Metal and polyethylene replacement. Biomet SSK femur: 70, 14 x 120 stem Constrained Kassie: 18 Exam Under anesthesia: Well healed incision with no swelling or erythema. Full extension, flexion to 90 degrees Procedural Notes: Morbidly obese female with displaced fracture and loosening decision was made between fixation versus bypassed the fracture with a longer stem and component versus conversion to a hinged knee. Based on the patient's age morbid obesity best option for the patient at this stage was bypassed with a longer stem and lower compartment. Operative procedure: The patient was brought to the operating room and placed on the operating room table. After general anesthesia was administered the operative knee was examined. Findings were noted in the exam under anesthesia. The operative extremity was prepped and draped in sterile surgical fashion. The patient received IV antibiotics prior to skin incision. A standard midline incision was made centered over the patella through the old incision. The incision was made through the skin and subcutaneous tissue. A medial parapatellar tendon approach was performed. Care was taken to preserve tissue along the medial aspect of the patella. And to protect the patella tendon. The deep MCL was released off the medial tibia. The infra patella fat pad was excised. Fluid was encountered this was normal joint fluid, Cultures were obtained and gram . The knee was brought into flexion the poly-was removed. The patient's femoral component was loose and removed without incident. Decision was made at this point whether to fix it convert to a hinged knee or try to bypass with a larger component. Based on the patient's age and morbid obesity conversion to a hinge there was concern of early failure. Decision was made to go with a larger stem to bypass the fracture and intramedullary fixation a large component to bypass the anterior displacement. This was [place] by reaming up to a 14 x 1 20 and using a 70 component. Intraoperative reduction with the trial found this to bypass both the anterior flange of the femoral shaft and to bypass the fracture significantly with the 120 stem. The knee sat for 2 minutes with a Betadine saline solution. It was irrigated out with 2 L of pulse irrigation. The components were assembled on the back table, the femoral component was cemented in place. It was held in extension after an 18 constrained Kassie was seated and secured. Intraoperative films again showed good position of the component acceptable position of the fracture fragments. After the cement hardened the knee was irrigated out again. The knee was closed by the PA. The extensor mechanism was closed with a running #2 Fiberwire suture and a running #2 PDS suture. The deep tissue was irrigated and closed deep with #1 PDS suture superficially with 0 PDS suture. The skin was closed with skin delfin. The patient was placed in a sterile dressing and postoperative brace. They were extubated and transferred to recovery room in stable condition. Anesthesia: GETA Surgeon: Robi Munroe Was there an material assistant present: No Estimated blood loss (cc): 400 Condition: stable Disposition: PACU
[2017-10-02] MEDS ORDERED: *HR* Morphine 10 MG/ML VIAL ONE (19:55)
--- NOTE | 2017-10-02 20:42 | Anesthesia Evaluation Post Op ---
Date of Encounter: 10/02/17 Time of Encounter: 20:50 - Vital Signs Vital Signs: Vital Signs/O2 Sat/Glucose, Most Current Temp Pulse Resp BP Pulse Ox 10/02/17 20:35 88 14 146/54 95 10/02/17 20:25 98.7 F 87 12 129/78 99 10/02/17 17:41 83 142/71 97 - Lungs Lungs: Clear Ascult./Percussion - Airway Airway: Non-obstructed - Cardiovascular Regular Rate - Mental Status Mental Status: Alert & Oriented, Answers Appropriately - Pain Pain Scale: 1 - Nausea Vomiting Nausea Vomiting: Not Present - Hydration Hydration: Ice chips - Discharge PostOp Status: Transfer Patient to floor
[2017-10-02 20:52] LABS: Hematocrit 36.2 % (35.3-44.9); Hemoglobin 11.1 g/dL (11.5-15.4)
[2017-10-02] MEDS ORDERED: Naloxone 0.4 MG/ML INJ IVP PRN (21:09)
[2017-10-02] MEDS ORDERED: MOM Conc 10 ML UD.LIQ PO PRN (21:09)
[2017-10-02] MEDS ORDERED: Sennosides 8.6 MG TABLET PO PRN (21:09)
[2017-10-02] MEDS ORDERED: Ondansetron 4 MG/2 ML VIAL IVP PRN (21:09)
[2017-10-02] MEDS ORDERED: Temazepam 15 MG CAPSULE PO PRN (21:09)
[2017-10-02] MEDS ORDERED: Gabapentin 300 MG CAPSULE PO SCH (21:09)
[2017-10-02] MEDS ORDERED: Venlafaxine XR (24 HR) 150 MG CAP.ER.24H PO SCH (21:09)
[2017-10-02] MEDS ORDERED: *HR* OxyCODONE Immed Rel 5 MG TABLET PO PRN (21:09)
[2017-10-02] MEDS: *HR* OxyCODONE Immed Rel 5 MG TABLET PO PRN (21:58)
[2017-10-03] MEDS: CeFAZolin Syr 3,000MG/30 ML 3,000 MG/30 ML SYRINGE IVPB SCH ×2 (00:50→08:18)
[2017-10-03] MEDS: *HR* OxyCODONE Immed Rel 5 MG TABLET PO PRN ×3 (04:50→12:44)
[2017-10-03] MEDS ORDERED: *HR* Enoxaparin 30 MG/0.3 ML SYRINGE SQ SCH (06:00)
--- NOTE | 2017-10-03 06:55 | Orthopedics Progress Note ---
Date of Encounter: 10/03/17 Time of Encounter: 06:55 - Assessment and Plan (1) HTN (hypertension) Current Visit: No Status: Chronic Qualifiers: Hypertension type: unspecified Qualified Code(s): I10 - Essential (primary ) hypertension (2) Fibromyalgia Current Visit: No Status: Chronic (3) Morbid obesity with BMI of 50.0-59.9, adult Current Visit: No Status: Chronic (4) Periprosthetic fracture around prosthetic knee Current Visit: No Status: Acute Qualifiers: Encounter type: subsequent encounter Laterality: right Qualified Code(s) : M97.11XD - Periprosthetic fracture around internal prosthetic right knee joint , subsequent encounter; T84.042D - Periprosthetic fracture around internal prosthetic right knee joint, subsequent encounter (5) Fibromyalgia Current Visit: No Status: Chronic (6) Depression Current Visit: No Status: Chronic Qualifiers: Depression Type: unspecified Qualified Code(s): F32.9 - Major depressive disorder, single episode, unspecified Subjective Interval history: Patient was seen this morning doing well without complaints. Afebrile vital signs stable. Operative extremity: Neurovascularly intact Dressing clean dry and intact Calves nontender Assessment and plan: Continue with postoperative care Hematocrit 36 discharged today Objective Vital signs: Vital Signs Temp Pulse Resp BP Pulse Ox 10/03/17 04:01 98.0 F 82 17 110/75 97 10/03/17 00:52 97.8 F 89 16 111/78 97 10/02/17 23:31 98 F 94 18 112/78 94 10/02/17 22:33 98.2 F 98 16 116/81 95 10/02/17 21:49 97.7 F 86 16 97/68 93 10/02/17 21:10 97.9 F 86 16 103/63 96 10/02/17 20:52 97.3 F L 81 16 106/59 95 10/02/17 20:45 89 16 118/55 96 10/02/17 20:35 88 14 116/54 95 10/02/17 20:25 98.7 F 87 12 129/78 99 10/02/17 17:41 83 142/71 97 10/02/17 15:47 98.6 F 90 18 120/74 97 Intake and Output 10/02/17 10/02/17 10/03/17 15:59 23:59 07:59 Intake Total 30 / 30 Output Total 200 / 200 400 / 400 Balance -200 / -200 -370 / -370 Intake: IV Fluids 30 / 30 Ancef Syringe 3,000 MG/30 ML 3, 30 / 30 000 mg In 30 ml @ 200 mls/hr IVPB Q8HR ADOLFO Rx#:[id number] Output: Urine 400 / 400 Estimated Blood Loss 200 / 200 Other: # Voids 1 Weight 144.242 kg 144.5 kg Patient Weight 10/03/17 23:59 Weight 144.5 kg - Labs CBC & BMP: 10/02/17 20:44 Labs: Abnormal lab results Hgb 11.1 g/dL (11.5-15.4) L 10/02/17 20:44 - VTE Documentation of Mechanical Device: Venous foot pump, device Consult Discharge Plan - Plan Referrals: NONE,PCP [Primary Care Provider] -
[2017-10-03 07:00] LABS: Hematocrit 33.9 % (35.3-44.9); Hemoglobin 10.7 g/dL (11.5-15.4)
[2017-10-03] MEDS ORDERED: Gabapentin 300 MG CAPSULE PO SCH (09:00)
[2017-10-03 09:08] LABS: BUN/Creatinine Ratio 17 (6-26); Blood Urea Nitrogen 12 mg/dL (6-20); Carbon Dioxide 28 mEq/L (23-29); Chloride 102 mEq/L (98-107); Glucose 134 mg/dL (70-105); Osmolality,Calculated 284 (280-300); Potassium 4.3 mEq/L (3.5-5.1); Sodium 136 mEq/L (136-145); eGFR For African Americans > 60 (> 60); eGFR For Non-African Americans > 60 (> 60)
[2017-10-03 11:02] VITALS: BP 150/85
== END 2017-10-03 12:48 | disposition home or self-care (01) | DRG 467 ==
LOC: SAMDAY 15:16 → 3NENU 21:07
PROVIDERS: ADMIT Orthopaedic Surgery; ATTEND Orthopaedic Surgery